=== PATIENT | male | born 1970 | race Caucasian/White ===

== ENCOUNTER → 2016-11-14 | Outpatient (CLI) | payer OTHER ==
--- NOTE | 2016-11-14 15:46 | MR ---
EXAMINATION TYPE: MR lumbar spine wo/w con DATE OF EXAM: 11/14/2016 2:50 PM COMPARISON: NONE HISTORY: CAUDA EQUINA SYNDROME CONTRAST: 15 mL intravenous MultiHance. TECHNIQUE: Multiplanar, multisequence images of the lumbar spine were acquired. FINDINGS: Cord terminates at the L1 level. Tarlov cysts are below the S1 level. L5-S1: Disc bulge is present with anterior thecal sac contact. This may have contact with the exiting nerve roots. Compression or displacement however is not identified. No spinal canal stenosis. No f oraminal stenosis. . L4-L5: No significant disc bulge or disc herniation. No spinal canal stenosis. Ligamentum flavum la xity has lateral canal narrowing. Some facet hypertrophy is present. . L3-L4: No significant disc bulge or disc herniation. No spinal canal stenosis. No foraminal stenosi s. . L2-L3: No significant disc bulge or disc herniation. No spinal canal stenosis. No foraminal stenosi s. . L1-L2: No significant disc bulge or disc herniation. No spinal canal stenosis. No foraminal stenosi s. . T12-L1: No significant disc bulge or disc herniation. No spinal canal stenosis. No foraminal stenos is. . No abnormal enhancement. IMPRESSION: 1. Some lateral canal narrowing L4-5 secondary to facet hypertrophy and ligamentum flavum laxity. 2. Broad-based disc bulge L5-S1 with anterior thecal sac contact may have contact with the exiting ne rve roots. No displacement or compression however is evident.
== END | disposition home or self-care (01) ==
LOC: RADMRIMAIN 14:03
PROVIDERS: ATTEND Physician Assistant Medical
DX: M99.73 Connective tissue and disc stenosis of intervertebral foramina of lumbar region (principal); M51.27 Other intervertebral disc displacement, lumbosacral region
CPT/HCPCS: 72158; A9577

== ENCOUNTER 2016-11-24 07:17 | Day surgery (SDC) | payer OTHER ==
[2016-11-22 09:54] VITALS: BMI 23.1
[~2016-11-24 07:17] MED LIST: LACTATED RINGERS 1,000 ML IV SCH; LIDOCAINE 1% 20 ML VIAL (10MG/ML) FOR IV START INTRADERMA PRN
[2016-11-24 07:29] VITALS: TEMP 97.2
[2016-11-24] MEDS ORDERED: LACTATED RINGERS 1,000 ML IV ONE (07:31)
[2016-11-24] MEDS ORDERED: LIDOCAINE 1% INJ 10MG/ML (20 ML MDV) ONE (07:42)
[2016-11-24] MEDS ORDERED: PROPOFOL 10 MG/ML 20 ML VIAL IV ONE (07:42)
--- NOTE | 2016-11-24 07:48 | P.GSHP ---
History of Present Illness H&P Date: 11/24/16 Chief Complaint: GI bleed This a 46-year-old male who presents today for colonoscopy. He's had issues with rectal bleeding. Patient states she's had a colonoscopy. 4 years ago. - Constitutional Constitutional: Reports as per HPI Past Medical History Past Medical History: Chest Pain / Angina, GERD/Reflux Additional Past Medical History / Comment(s): tachycardia, painful bowel movements, blood in stool, History of Any Multi-Drug Resistant Organisms: None Reported Past Surgical History: Back Surgery, Cardiac Ablation, EPS, Orthopedic Surgery Additional Past Surgical History / Comment(s): Tilt table test, multiple chest tubes for plural effusion. left shoulder surgery, laminectomy/disectomy, Past Anesthesia/Blood Transfusion Reactions: Previous Problems w/ Anesthesia, Family History of Problems w/ Anesthesia Additional Past Anesthesia/Blood Transfusion Reaction / Comment(s): diff intubation(pt and his brother) Past Psychological History: Anxiety, Depression Smoking Status: Former smoker Past Alcohol Use History: Rare Additional Past Alcohol Use History / Comment(s): quit smoking 2014, smoked for 20 yrs- 1 PPD Past Drug Use History: None Reported - Past Family History Father Family Medical History: Cancer Additional Family Medical History / Comment(s): lung cancer Mother Family Medical History: Cancer Additional Family Medical History / Comment(s): esophageal cancer. Brother(s) Additional Family Medical History / Comment(s): Patient had 2 brothers with no major medical problems. Sister(s) Additional Family Medical History / Comment(s): Patient has one sister that from lifestyle issues. Patient has one son and one daughter with no major medical problems. Medications and Allergies Home Medications Medication Instructions Recorded Confirmed Type Cyclobenzaprine [Flexeril] 10 mg PO HS 11/26/14 11/22/16 History Sizdzpu-Gqto-Vjdc [id number] 1 - 2 tab PO DAILY PRN 07/25/16 11/22/16 History [Excedrin] Ibuprofen [Advil] 200 mg PO Q6HR PRN 07/25/16 11/22/16 History DULoxetine HCL [Cymbalta] 60 mg PO BID 11/22/16 11/22/16 History Metoprolol Succinate [Toprol XL] 25 mg PO HS 03/07/17 03/07/17 History Morphine Sulfate [Tessa] 30 mg PO DIRECTED PRN 11/22/16 11/22/16 History Allergies Allergy/AdvReac Type Severity Reaction Status Date / Time No Known Allergies Allergy Verified 11/22/16 09:40 Surgical - Exam Vital Signs Temp Pulse Resp BP Pulse Ox 97.2 F L 67 18 119/75 98 11/24/16 07:28 11/24/16 07:28 11/24/16 07:28 11/24/16 07:28 11/24/16 07:28 - General well developed, no distress - Eyes PERRL - ENT normal pinna - Neck no masses - Respiratory normal expansion - Cardiovascular Rhythm: regular - Abdomen Abdomen: soft, non tender Assessment and Plan Plan: GI bleed. We'll perform colonoscopy.
--- NOTE | 2016-11-24 07:58 | P.OP ---
Date of Procedure: 11/24/16 Preoperative Diagnosis: GI bleed Postoperative Diagnosis: External hemorrhoids Poor colonic prep Procedure(s) Performed: Colonoscopy Anesthesia: MAC Surgeon: Mario Reyes Pathology: none sent Condition: stable Disposition: PACU Description of Procedure: The patient's placed on the endoscopy table in the lateral position. He received IV sedation. Digital rectal exam was performed which revealed external hemorrhoids. There is a large amount liquid stool in the rectal vault. The flexible colonoscope was then placed patient anus and passed throughout the colon. The colonic prep was very poor. There is a large amount liquid stool throughout the colon. Scope was passed into the right colon however there was too much stool and it could not be passed any further. Scope was withdrawn there was a limited view of the right colon, transverse colon descending colon and sigmoid colon. There is no evidence of blood. The mucosa was poorly visualized due to the large amount liquid stool. Scope was then brought back the rectum and this appeared normal. Scope was withdrawn for patient.
[2016-11-24 08:04] VITALS: RESP 16
[2016-11-24 08:27] VITALS: BP 139/91; PULSE 68
== END 2016-11-24 09:00 | disposition home or self-care (01) ==
LOC: ORWHC2ENDO 07:17
PROVIDERS: ATTEND Surgery
DX: K64.4 Residual hemorrhoidal skin tags (principal); Z87.19 Personal history of other diseases of the digestive system; K21.9 Gastro-esophageal reflux disease without esophagitis; F41.9 Anxiety disorder, unspecified; F32.9 Major depressive disorder, single episode, unspecified; I49.9 Cardiac arrhythmia, unspecified; Z79.1 Long term (current) use of non-steroidal anti-inflammatories (NSAID); Z79.82 Long term (current) use of aspirin; Z79.891 Long term (current) use of opiate analgesic; Z79.899 Other long term (current) drug therapy; Z87.891 Personal history of nicotine dependence
CPT/HCPCS: 45378; J2001; J2704

== ENCOUNTER → 2017-03-10 | Outpatient (CLI) | payer OTHER ==
--- NOTE | 2017-03-10 09:48 | CT ---
EXAMINATION TYPE: CT chest w con DATE OF EXAM: 03/10/2017 COMPARISON: September 06, 2013, radiograph. No CT is available. HISTORY: Scar tissue due to TB, shortness of breath. CT DLP: 540 mGycm Automated exposure control for dose reduction was used. CONTRAST: CT scan of the chest is performed with IV Contrast, patient injected with 100 mL of Omnipaque 300. FINDINGS: LUNGS: Diffuse emphysematous changes with apical scarring is noted left greater than right upper lobe . Mild dependent changes are noted at the left lung base. There is no pleural effusion or pneumothora x. A discrete pulmonary nodule is not identified. The central airways are patent. No endobronchial le mac is identified. The mediastinum is unremarkable. There is no mediastinal or hilar lymphadenopathy. The aorta is not d ilated. Visualized upper abdomen reveals no significant findings. Osseous structures are unremarkable. IMPRESSION: Bullous changes and scarring are noted in the left upper lobe. When comparing the front desk auxiliary image to the radiograph from August 2013 this does not appear significantly changed. Correlation with prior outs adriane computed tomography may be of benefit if warranted.
== END | disposition home or self-care (01) ==
LOC: RADCTMAIN 07:21
PROVIDERS: ATTEND Family Medicine
DX: J98.4 Other disorders of lung (principal)
CPT/HCPCS: 71260; Q9967

== ENCOUNTER → 2017-07-06 | Outpatient (CLI) | payer OTHER ==
--- NOTE | 2017-07-06 13:49 | MR ---
EXAMINATION TYPE: MR lumbar spine wo/w con DATE OF EXAM: 07/06/2017 COMPARISON: 11/14/2016 HISTORY: 47-year-old male with lumbago, low back pain Technique: Multiplanar, multisequence images of the lumbar spine were obtained before and after admin istration of 7.5 mL intravenous Gadavist gadolinium contrast. FINDINGS: Vertebral body heights are preserved. Alignment is maintained. Conus medullaris is normal. No suspicious bone marrow replacement. Variable disc desiccation throughout, greatest at L5-S1 where there is also mild disc height loss. Bu lging disks at multiple levels. Small posterior annular fissure at L4-L5. Facet arthropathy mid to lower lumbar spine. At T12-L1, mild disc bulge without significant canal or foraminal stenosis. At L1-L2, mild diffuse disc bulge without significant canal or foraminal stenosis. At L2-L3, mild diffuse disc bulge and mild facet degenerative change. No significant spinal canal or neuroforaminal stenosis. At L3-L4, there is mild facet degenerative change without significant spinal canal or neuroforaminal stenosis. At L4-L5, diffuse disc bulge with posterior annular fissure and facet degenerative change. Changes re sult in mild left greater than right neuroforaminal stenosis. Disc material seems to abut the alyssa ing left L5 nerve root and possibly contact the traversing right L5 nerve root as well, sagittal imag es 4 and 8. No spinal canal stenosis. L5 laminectomy changes present without suspicious epidural or p erineural enhancement. At L5-S1, there is diffuse disc bulging eccentric towards the left with facet degenerative change. No spinal canal stenosis. Changes result in mild bilateral neuroforaminal stenosis. However, there may be prominent abutment of the extraforaminal left L5 nerve root by the bulging disc, axial image 3. Small 8 mm sacral Tarlov cyst towards the left. No prevertebral or paravertebral soft tissue abnormality seen. IMPRESSION: 1. Overall stable appearance to the lumbar spine. Prior L5 laminectomy; no suspicious enhancement see n. 2. Moderate degenerative disc disease lower lumbar spine but with bulging disks throughout and facet arthropathy mid to lower lumbar spine. 3. Variable mild neuroforaminal stenoses as outlined above. 4. At L4-L5, disc material may contact the traversing L5 nerve roots on both sides. A posterior annul ar fissure is present at this level. 5. At L5-S1, eccentric leftward disc bulge may contact the extraforaminal left L5 nerve root.
== END | disposition home or self-care (01) ==
LOC: RADMRIMAIN 12:48
PROVIDERS: ATTEND Psychiatry & Neurology Pain Medicine
DX: M99.73 Connective tissue and disc stenosis of intervertebral foramina of lumbar region (principal); M51.26 Other intervertebral disc displacement, lumbar region; M51.36 Other intervertebral disc degeneration, lumbar region; M46.96 Unspecified inflammatory spondylopathy, lumbar region; Z98.890 Other specified postprocedural states
CPT/HCPCS: 72158; A9581

== ENCOUNTER → 2018-06-13 | Outpatient (CLI) | payer OTHER ==
--- NOTE | 2018-06-13 08:38 | CT ---
EXAMINATION TYPE: CT lumbar spine wo con DATE OF EXAM: 06/13/2018 COMPARISON: MRI 07/06/2017 HISTORY: 48-year-old male back pain TECHNIQUE: Contiguous axial scanning of the lumbar spine without IV contrast. Coronal and sagittal re constructions performed. CT DLP: 461.3 mGycm Automated exposure control for dose reduction was used. FINDINGS: Vertebral body heights are preserved and alignment is maintained. Mild degenerative disc disease throughout characterized by disc space narrowing and bulging discs. Mo re moderate degenerative change at L5-S1 with some vacuum phenomenon noted. Facet arthropathy lower lumbar spine and prior L5 laminectomies. No pars interarticularis defect. No prevertebral or paravertebral soft tissue abnormality. At L4-L5, redemonstrated broad-based posterior disc protrusion as seen on prior MRI. This does not ap pear to compromise the spinal canal. On the right, the changes cause mild spinal canal stenoses at L4-L5 and L5-S1. On the left, more moderate neuroforaminal stenosis at L4-L5 and L5-S1. IMPRESSION: 1. MODERATE DEGENERATIVE DISC DISEASE AT L5-S1 AND FACET ARTHROPATHY IN THE LOWER LUMBAR SPINE BUT WI TH BULGING DISCS AT MULTIPLE LEVELS, LARGEST AT L4-L5, RELATIVELY SIMILAR TO PATIENT'S PRIOR MRI. 2. PRIOR L5 LAMINECTOMY CHANGE. 3. NO VERTEBRAL COMPRESSION COLLAPSE OR MALALIGNMENT. 4. MODERATE LEFT-SIDED NEUROFORAMINAL STENOSIS AT L4-L5 AND L5-S1. MILD ON THE RIGHT AT THESE LEVELS.
== END | disposition home or self-care (01) ==
LOC: RADCTMAIN 07:49
PROVIDERS: ATTEND Specialist
DX: M48.061 Spinal stenosis, lumbar region without neurogenic claudication (principal); M51.36 Other intervertebral disc degeneration, lumbar region; M51.37 Other intervertebral disc degeneration, lumbosacral region; M46.96 Unspecified inflammatory spondylopathy, lumbar region; Z98.890 Other specified postprocedural states
CPT/HCPCS: 72131

== ENCOUNTER → 2018-08-03 | Outpatient (CLI) | payer OTHER ==
--- NOTE | 2018-08-03 08:57 | MR ---
EXAMINATION TYPE: MR lumbar spine wo/w con DATE OF EXAM: 08/03/2018 COMPARISON: MRI lumbar spine June 26, 2017. CT lumbar spine June 13, 2018. HISTORY: Spinal stenosis / Radiculopathy /disc displacement all per order. Pain for 5 years into bila teral lower extremities with history of surgery February 2018 per patient. TECHNIQUE: Multiplanar, multisequence images of the lumbar spine is performed without and with IV contrast, util izing 7.5 mL intravenous Gadavist FINDINGS: Sagittal images of the lumbar spine show vertebral body heights and alignment to remain sat isfactory. Persistent small Schmorl node anterior inferior T12 endplate. There is persistent multilev el disc desiccation. There is persistent mild disc space narrowing T12-L1 and L1-L2 levels. There is persistent mild disc space narrowing L4-L5 level with posterior disc herniation and annular tear on s agittal images. There is persistent mild to moderate disc space narrowing with vacuum disc phenomenon L5-S1 level with posterior disc herniation. No significant change from prior MRI. The conus medullar is remains normal in position and signal ending mid L1 level. There is interval surgery with posterio r laminectomies and spinous process resection L5 level. The bone marrow signal intensity is within n ormal limits. No suspicious enhancement is noted. Stable 8 mm Tarlov cysts inferior S1 level sagittal image 5. Axial images at T12-L1 level redemonstrated mild broad disc bulge without significant spinal canal st enosis or neural foraminal narrowing. Axial images at L1-L2 level show slightly more prominent mild broad disc bulge minimally effacing ant erior thecal sac, bilateral neural foramina are patent. No significant change from prior. Axial images at L2-L3 level shows mild broad disc bulge and mild facet degenerative changes bilateral ly. Spinal canal is minimally effaced anteriorly. Bilateral neural foramina are patent. No significan t change from prior. Axial images at L3-L4 level redemonstrate mild facet degenerative changes and ligamentum flavum hyper trophy bilaterally. Spinal canal is preserved. Bilateral neural foramina are patent. Axial images at L4-L5 level redemonstrate mild to moderate facet degenerative changes bilaterally. Th ere is broad disc bulge with central disc protrusion component annular tear effacing anterior thecal sac. There is persistent left greater than right mild bilateral neural foraminal narrowing. No defini tive nerve effacement identified. No significant change from prior MRI. Axial images at the L5-S1 level show mild/moderate facet degenerative changes bilaterally. There are bilateral laminectomy defects and spinous process resection. There is central disc protrusion seen ax ial image 3. Spinal canal is preserved. There is mild to moderate inferior left-sided neural foramina l narrowing at this level redemonstrated due to foraminal disc protrusion component. Right-sided neur al foramen is patent. No significant change from prior. IMPRESSION: Redemonstration of postsurgical changes L5 level. Stable alignment. Stable multilevel deg enerative changes most prominent at L4-L5 and L5-S1 levels as detailed above. No suspicious or new di sc herniation seen to account for patient's bilateral radiculopathy type symptoms. No significant makayla nge from prior MRI.
== END | disposition home or self-care (01) ==
LOC: RADMRIMAIN 08:03
PROVIDERS: ATTEND Nurse Practitioner
DX: M47.816 Spondylosis without myelopathy or radiculopathy, lumbar region (principal); M47.817 Spondylosis without myelopathy or radiculopathy, lumbosacral region; Z98.890 Other specified postprocedural states
CPT/HCPCS: 72158; A9585

== ENCOUNTER → 2018-09-07 | Outpatient (CLI) | payer OTHER ==
--- NOTE | 2018-09-07 08:24 | CT ---
EXAMINATION TYPE: CT chest w con DATE OF EXAM: 09/07/2018 COMPARISON: 03/10/2017 HISTORY: interstitial lung disease CT DLP: 232.50 mGycm Automated exposure control for dose reduction was used. CONTRAST: CT scan of the chest is performed with IV Contrast, patient injected with 100 mL of Isovue 300. FINDINGS: LUNGS: Severe left greater than right upper lobe emphysematous change. Pleural parenchymal scarring l eft lung apex and to a lesser extent on the right. Linear atelectasis or parenchymal scar left lower lobe. Overall appearance is improved from prior study. No distinct infiltrate or pulmonary mass. Pleu ral-based calcification left lower lobe. MEDIASTINUM: There are no greater than 1 cm hilar or mediastinal lymph nodes. No pericardial effusi on is seen. Thoracic aorta is of normal caliber. The heart is not enlarged. UPPER ABDOMEN: No significant abnormality appreciated. OTHER: No additional significant abnormality is seen. IMPRESSION: 1. Stable emphysematous changes and biapical scarring. No evidence of pulmonary nodule or mass at thi s time.
== END ==
LOC: RADCTMAIN 07:27
PROVIDERS: ATTEND Internal Medicine Critical Care Medicine
DX: J43.9 Emphysema, unspecified (principal); J98.4 Other disorders of lung
CPT/HCPCS: 71260; Q9967

== ENCOUNTER → 2018-09-14 | Day surgery (SDC) | payer OTHER ==
[~2018-09-14] MED LIST changes: +DIAZEPAM 5 MG TAB PO STA; +HYDROcodone/APAP 5-325MG 1 EACH TAB ONE; +HYDROcodone/APAP 5-325MG 1 EACH TAB PO STA; -LACTATED RINGERS 1,000 ML IV SCH; -LIDOCAINE 1% 20 ML VIAL (10MG/ML) FOR IV START INTRADERMA PRN; +PREMYELOGRAM MEDICATION REVIEW 1 EACH MISC PO NR
[2018-09-14 08:27] VITALS: TEMP 98.5
[2018-09-14 10:08] VITALS: RESP 18
--- NOTE | 2018-09-14 12:03 | CT ---
EXAMINATION TYPE: CT lumbar spine w con DATE OF EXAM: 09/14/2018 COMPARISON: CT lumbar spine June 13, 2018. MRI lumbar spine August 03, 2018 HISTORY: Spinal stenosis per order. History of prior back surgeries with most recent surgery earlier this year CT DLP: 927 mGycm Automated exposure control for dose reduction was used. CONTRAST: CT scan of the lumbar is performed without IV contrast but with intrathecal contrast. There are 5 lum bar-type vertebra redemonstrated. There is slight levoconvex scoliotic curvature again seen. There is persistent moderate disc space narrowing L5-S1 level and mild disc space narrowing L1-L2 level. Ther e is successful contrast opacification of spinal canal. There is redemonstration of spinous process r esection L5 level. Conus medullaris ends at upper to mid L1 level. Axial images redemonstrate mild broad disc bulge minimally effacing anterior thecal sac at L3-L4 leve l with mild facet degenerative changes bilaterally. Axial images at the L4-L5 level show bilateral laminectomy defects and spinous process resection with mild facet degenerative changes bilaterally. There is broad disc bulge with central disc protrusion effacing anterior thecal sac which correlates with MRI. There is mild bilateral neural foraminal narr owing seen. Axial images at L5-S1 level show mild facet degenerative changes bilaterally. Bilateral laminectomy d efects and spinous process resection are again seen. Spinal canal is preserved. Central disc protrusi on does effacing the anterior thecal sac. Right-sided neural foramina is patent. Some marginal spurri ng on the left causes moderate inferior left-sided neural foraminal narrowing. No suspicious incidental finding seen in visualized abdomen. IMPRESSION: Correlating with MRI there is postsurgical change L5 level. There is disc herniation L4-L 5 level effacing anterior thecal sac. Disc herniation also noted L5-S1 level without significant spin al canal effacement. No suspicious spinal canal stenosis seen. There is better visualization of moder ate left-sided neural foraminal narrowing L5-S1 level due to marginal spurring on CT versus recent MR I otherwise no significant interval change.
--- NOTE | 2018-09-14 12:06 | FL ---
EXAMINATION TYPE: FL myelogram lumbosacral DATE OF EXAM: 09/14/2018 COMPARISON: CT lumbar spine June 13, 2018. MRI lumbar spine August 03, 2018. HISTORY: Low back pain, spinal stenosis. Informed consent was obtained and all the patient's questions were answered. The L5 level was locali zed under fluoroscopy due to laminectomy defects and spinous process resection. A total of 1 minute 14 seconds of fluoroscopic time was utilized during procedure. 6 spot images are saved to PACS. Standard sterile technique was utilized as well as appropriate local anesthesia 1% Lidocaine . Spina l needle was introduced into the thecal sac under fluoroscopic guidance and 10 mL's of Isovue-300 was injected. The patient tolerated the procedure well and left the department in stable condition. CT myelography is to follow. Vital findings were stable and monitored before during and after procedure. Patient was kept in the h ospital for short stay after procedure and CT and then discharged home in stable condition Images saved after successful contrast opacification show no obvious focal spinal canal stenosis. IMPRESSION: Successful myelography lumbar spine.
[2018-09-14 14:25] VITALS: BP 121/72; PULSE 88
== END ==
LOC: RADPROMAIN 07:59
PROVIDERS: ATTEND Specialist
DX: M51.16 Intervertebral disc disorders with radiculopathy, lumbar region (principal); M48.07 Spinal stenosis, lumbosacral region; M96.1 Postlaminectomy syndrome, not elsewhere classified; Z79.899 Other long term (current) drug therapy; Z87.891 Personal history of nicotine dependence
CPT/HCPCS: 62304; 72132; Q9967

== ENCOUNTER → 2019-07-16 | Outpatient (CLI) | payer OTHER ==
[2019-07-16 11:21] VITALS: BP 137/89; PULSE 110; RESP 18
--- NOTE | 2019-07-16 12:08 | P.PAINCN ---
History of Present Illness - Reason for Consult Consult date: 07/16/19 - History of Present Illness This is an initial consultation visit for this 49 years old male with a chronic history of severe low back pain started in 2012 after he slipped and fell at work, and he had lumbar laminectomy surgery at that time, and last year he had a lumbar laminectomy surgery and he continued to have pain, with radiation to the lower extremity associated with some numbness and tingling sensation, then in December of 2018 he had lumbar laminectomy and fusion surgery at L4 5 and L5-S1, helped his low back pain to some degree, currently is complaining of severe low back pain mostly in the buttock area bilaterally, occasional numbness and tingling sensation in the lower extremity, he denies any motor or sensory deficit, he denies any fever or night sweats, there is no change in bowel movement or urination, intensity of the pain increased with sitting or standing for long periods of time, and with any activity Past Medical History Past Medical History: Chest Pain / Angina, GERD/Reflux Additional Past Medical History / Comment(s): current back pain, tachycardia, 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 left shoulder surgery, laminectomy/disectomy, spinal fusion with rods and screws Past Anesthesia/Blood Transfusion Reactions: Previous Problems w/ Anesthesia, Family History of Problems w/ Anesthesia Additional Past Anesthesia/Blood Transfusion Reaction / Comm: diff intubation(pt and his brother)-no letter Smoking Status: Former smoker - Past Family History Father Family Medical History: Cancer Additional Family Medical History / Comment(s): lung cancer Mother Family Medical History: Cancer Additional Family Medical History / Comment(s): esophageal cancer. Brother(s) Additional Family Medical History / Comment(s): Patient had 2 brothers with no major medical problems. Sister(s) Additional Family Medical History / Comment(s): Patient has one sister that from lifestyle issues. Patient has one son and one daughter with no major medical problems. Medications and Allergies Home Medications Medication Instructions Recorded Confirmed Type Baclofen 10 mg PO BID PRN 07/12/19 07/12/19 History Butalb/APAP/Caff 50-325-40Mg 1 tab PO BID PRN 07/12/19 07/12/19 History [Fioricet 50-325-40] Meloxicam 15 mg PO DAILY 07/12/19 07/12/19 History hydrOXYzine HCL [Atarax] 25 mg PO TID PRN 07/12/19 07/12/19 History Allergies Allergy/AdvReac Type Severity Reaction Status Date / Time No Known Allergies Allergy Verified 07/12/19 11:00 Physical Exam Vitals: Vital Signs Pulse Resp BP Pulse Ox 07/16/19 11:10 110 H 18 137/89 98 REVIEW OF ORGAN SYSTEMS: CONSTITUTIONAL: No fevers or chills. No recent weight loss. EYES: History of troubles with vision. No glasses. HEENT: No difficulties with hearing. No nosebleeds. No difficulty swallowing. RESPIRATORY: Past pneumonia. Denies any troubles with breathing or dyspnea on exertion. CARDIOVASCULAR: Denies any chest pain, palpitations, or recent heart attacks. GASTROINTESTINAL: Denies fatty food intolerance. Has change in bowel habits and gas bloat. GENITOURINARY: Denies any blood in urine. Has increased urinary frequency. NEUROLOGICAL: Occasional numbness , tingling along the lower extremities. No seizure disorders or headaches. MUSCULOSKELETAL: Has back pain, stiffness or joint arthritis. SKIN: no skin rash PSYCHIATRIC: Denies current depression or suicidal thoughts. ENDOCRINE: Denies current thyroid disorders. Denies any blood sugar glucose intolerance. HEME/LYMPHATIC: Denies any lumps and bumps around the neck. History of deep venous thrombosis. ALLERGY/IMMUNOLOGY: No immunoglobulin therapy. No immune deficiencies. BREAST: Denies current breast lumps, pain or nipple discharge. Physical Examinations : Constitutiona : Cooperative , not in acute distress . HEENT : nech : supple , no Lymphadenopathy , normal thyroid size . eyes : no ptosis , no icterus, no photophobia . ENT : normal of hearing , normal oropharynx , no Thrush . Respiratory : Chest clear to auscultations Bilaterally , no wheezing , no Rhonchi . Cardiovascula : regular rate and rhythem , S1 , S2 , no S3 , no S4. Gastrointestina : abdomen soft no tenderness , bowel sounds , no organomegally . Genitourinary : Defferred . neurologic : Cranial nerve II to XII intact , no focal neurological deffecit . psychatric : alert , oriented X 3 , appropriate affect , intact judgment and insight . Lymphatic : no Lymphadenopathy . musculoskeltal : Lumber spine moter stegnth lower extremities ,thigh and legs 5/5 Right side , 5/5 Left side deep tendon reflexes : normal Knee Jerk , normal ankle Jerk positive lumber facet Loading Test Range of motion of the lumbar spine Flexion 30 degrees, extension 10 degrees strait leg raising test , positive at 45 degree Fabere test positive bilaterally tenderness over the Sacroiliac joint on the R and L sides Gaenslen test= positive bilaterally. Seated flexion test= positive bilaterally. Results Comments: MRI of the lumbar spine 2018= L4 5 and L5-S1 lumbar laminectomy and facet degeneration Assessment and Plan Plan: Assessment and plan= failed back surgery syndrome and lumbar area. Sacroiliitis/sacroiliac joint dysfunction. Patient could benefit from caudal epidural steroid injection with lysis of epidural adhesions under fluoroscopy guidance Procedure risk and benefit of the alternatives discussed with the patient she agreed with the preceding. Time with Patient: Greater than 30 PQRS Measure Charge Sheet Measure #130: Documentation of Current Meds in Medical Chart: Patient's medications documented in chart Measure #226: Tobacco Use: Screen & Cessation Intervention: Pt not a tobacco user Measure #111: Pneumonia Vaccination: Pneumococcal vaccine NOT administered or previously given Measure #47: Advance Care Plan: Advance care planning discussed & documented, pt chose/unable to give Measure #412: Opioid Treatment Agreement: No documentation of signed opioid treatment agreement Measure #408: Opioid Therapy Follow-up Evaluation: Patient had NO f/u eval minimum every 3 months during opioid therapy Measure #317: Preventitive Care & Scrn High Bld Press & F/U: Normal blood pressure, f/u not required Measure #128: Body Mass Index (BMI) Screening & Follow-up: BMI documented within normal parameters Measure #131: Pain Assessment & Follow-up: Pain positive & plan documented, Follow-up scheduled Measure #431: Unhealthy Alcohol Use Preventative Care & Scrn: Patient not identified as an unhealthy alcohol user PQRS Narrative: Smoking Status Former smoker Blood Pressure 137/89 Pain Intensity [Lower Back] 6 Scale Used Numeric (1 - 10) Hx Alcohol Use (MH) Yes Home Medications: Ambulatory Orders Baclofen 10 mg PO BID PRN 07/12/19 Butalb/APAP/Caff 50-325-40Mg [Fioricet 50-325-40] 1 tab PO BID PRN 07/12/19 Meloxicam 15 mg PO DAILY 07/12/19 hydrOXYzine HCL [Atarax] 25 mg PO TID PRN 07/12/19
== END | disposition home or self-care (01) ==
LOC: PNWHC3 10:45
PROVIDERS: ATTEND Specialist
DX: G89.29 Other chronic pain (principal); M54.5 Low back pain; M96.1 Postlaminectomy syndrome, not elsewhere classified; M46.1 Sacroiliitis, not elsewhere classified; M53.3 Sacrococcygeal disorders, not elsewhere classified; Z87.891 Personal history of nicotine dependence; R20.2 Paresthesia of skin; R20.0 Anesthesia of skin; Z98.1 Arthrodesis status; Z79.899 Other long term (current) drug therapy
CPT/HCPCS: 99211

== ENCOUNTER 2021-05-27 09:40 | Day surgery (SDC) | payer BC, OTHER ==
[2021-05-25 15:23] VITALS: BMI 25.7
[~2021-05-27 09:40] MED LIST changes: -DIAZEPAM 5 MG TAB PO STA; -HYDROcodone/APAP 5-325MG 1 EACH TAB ONE; -HYDROcodone/APAP 5-325MG 1 EACH TAB PO STA; +LACTATED RINGERS 1,000 ML IV SCH; -PREMYELOGRAM MEDICATION REVIEW 1 EACH MISC PO NR
[2021-05-27 10:19] VITALS: TEMP 98.8
[2021-05-27] MEDS ORDERED: PROPOFOL 10 MG/ML 20 ML VIAL IV ONE (11:06)
--- NOTE | 2021-05-27 11:12 | P.GSHP ---
History of Present Illness H&P Date: 05/27/21 Chief Complaint: GERD The 51-year-old male presents today for EGD. He's had issues with GERD. Past Medical History Past Medical History: Chest Pain / Angina, GERD/Reflux, Musculoskeletal Disorder Additional Past Medical History / Comment(s): back pain, hx. 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 pain, GERD History of Any Multi-Drug Resistant Organisms: None Reported Past Surgical History: Adenoidectomy, Back Surgery, Cardiac Ablation, EPS, Orthopedic Surgery Additional Past Surgical History / Comment(s): Tilt table test, multiple chest tubes for plural effusion. left shoulder surgery, laminectomy/disectomy, spinal fusion with rods and screws Past Anesthesia/Blood Transfusion Reactions: Previous Problems w/ Anesthesia, Family History of Problems w/ Anesthesia Additional Past Anesthesia/Blood Transfusion Reaction / Comment(s): diff intubation(pt and his brother)-no letter Smoking Status: Former smoker - Past Family History Father Family Medical History: Cancer Additional Family Medical History / Comment(s): lung cancer Mother Family Medical History: Cancer Additional Family Medical History / Comment(s): esophageal cancer. Brother(s) Additional Family Medical History / Comment(s): Patient had 2 brothers with no m ajor medical problems. Sister(s) Additional Family Medical History / Comment(s): Patient has one sister that from lifestyle issues. Patient has one son and one daughter with no major medical problems. Medications and Allergies Home Medications Medication Instructions Recorded Confirmed Type hydrOXYzine HCL [Atarax] 25 mg PO TID PRN 07/12/19 05/25/21 History methocarbamoL [Methocarbamol] 500 mg PO Q8H PRN 05/25/21 05/25/21 History Allergies Allergy/AdvReac Type Severity Reaction Status Date / Time No Known Allergies Allergy Verified 05/25/21 15:07 Surgical - Exam Vital Signs Temp Pulse Resp BP Pulse Ox 98.8 F 77 18 116/76 96 05/27/21 10:18 05/27/21 10:18 05/27/21 10:18 05/27/21 10:18 05/27/21 10:18 - General well developed, well nourished, no distress - Eyes PERRL - ENT normal pinna - Neck no masses - Respiratory normal expansion - Cardiovascular Rhythm: regular - Abdomen Abdomen: soft, non tender Assessment and Plan Assessment: GERD. We'll perform EGD.
--- NOTE | 2021-05-27 11:20 | P.OP ---
Date of Procedure: 05/27/21 Preoperative Diagnosis: GERD Postoperative Diagnosis: Antral gastritis Esophagitis Small sliding hiatal hernia Procedure(s) Performed: EGD Anesthesia: MAC Surgeon: Mario Reyes Pathology: other (Antrum, esophagus) Condition: stable Disposition: PACU Description of Procedure: The patient's placed on the endoscopy table in the lateral position. He received IV sedation. The gastroscope placed oropharynx passed in the esophagus and stomach. Scope was then placed through the pylorus. First and second portion of the duodenum appeared normal. Scope was then brought back the antrum this was mildly inflamed. A biopsies performed. Scope was unretroflexed and remainder of the stomach appeared normal. There was a small sliding hiatal hernia. The GE junction was at 47 is. The distal esophagus appeared mildly inflamed a biopsies performed. The proximal esophagus appeared normal. Scope was withdrawn for patient.
[2021-05-27 12:09] VITALS: BP 119/75; PULSE 77; RESP 20
== END 2021-05-27 12:15 | disposition home or self-care (01) ==
LOC: ORWHC2ENDO 09:40
PROVIDERS: ATTEND Surgery
DX: K29.50 Unspecified chronic gastritis without bleeding (principal); K44.9 Diaphragmatic hernia without obstruction or gangrene; K21.00 Gastro-esophageal reflux disease with esophagitis, without bleeding; F41.9 Anxiety disorder, unspecified; G43.909 Migraine, unspecified, not intractable, without status migrainosus; Z80.1 Family history of malignant neoplasm of trachea, bronchus and lung; Z87.891 Personal history of nicotine dependence
CPT/HCPCS: 88305; 43239; J2704

== ENCOUNTER → 2021-06-03 | Outpatient (CLI) | payer BC ==
[2021-06-03 15:59] LABS: Basophils # (A) 0.1 k/uL (0-0.2); Basophils % (A) 1 %; Eosinophils # (A) 0.2 k/uL (0-0.7); Eosinophils % (A) 2 %; HCT 41.3 % (39.0-53.0); HGB 14.2 gm/dL (13.0-17.5); Lymphocytes # (A) 1.7 k/uL (1.0-4.8); Lymphocytes % (A) 27 %; MCH 28.7 pg (25.0-35.0); MCHC 34.5 g/dL (31.0-37.0); MCV 83.4 fL (80.0-100.0); Mean Platelet Volume 6.7; Monocytes # (A) 0.4 k/uL (0-1.0); Monocytes % (A) 6 %; Neutrophils # (A) 3.8 k/uL (1.3-7.7); Neutrophils % (A) 60 %; Platelet Count 316 k/uL (150-450); RBC 4.95 m/uL (4.30-5.90); WBC 6.4 k/uL (3.8-10.6)
== END | disposition home or self-care (01) ==
LOC: LABPAT 15:00
PROVIDERS: ATTEND Surgery
DX: Z01.812 Encounter for preprocedural laboratory examination (principal); K21.9 Gastro-esophageal reflux disease without esophagitis; D64.9 Anemia, unspecified; F17.200 Nicotine dependence, unspecified, uncomplicated
CPT/HCPCS: 36415; 85025; 93005

== ENCOUNTER 2023-10-16 11:18 | Day surgery (SDC) | payer BC ==
[2023-10-12 12:10] VITALS: BMI 23.1
[~2023-10-16 11:18] MED LIST changes: +LIDOCAINE 1% (10MG/ML) FOR IV START INTRADERMA PRN
[2023-10-16 12:00] VITALS: TEMP 98.6
[2023-10-16] MEDS ORDERED: PROPOFOL 10 MG/ML 20 ML VIAL IV ONE (13:03)
[2023-10-16] MEDS ORDERED: LIDOCAINE 2% (PF) 20 MG/ML 5 ML VIAL ONE (13:03)
--- NOTE | 2023-10-16 13:06 | P.GSHP ---
History of Present Illness H&P Date: 10/16/23 Chief Complaint: GERD -year-old male presents today for EGD. He had issues with GERD. Past Medical History Past Medical History: Chest Pain / Angina, GERD/Reflux, Musculoskeletal Disorder Additional Past Medical History / Comment(s): Back pain, hx. 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 pain, GERD. History of Any Multi-Drug Resistant Organisms: None Reported Past Surgical History: Adenoidectomy, Back Surgery, Cardiac Ablation, EPS, Orthopedic Surgery Additional Past Surgical History / Comment(s): Tilt table test, multiple chest tubes for plural effusion, left shoulder surgery, laminectomy/disectomy, spinal fusion with rods and screws, EGD. Past Anesthesia/Blood Transfusion Reactions: Previous Problems w/ Anesthesia, Family History of Problems w/ Anesthesia Additional Past Anesthesia/Blood Transfusion Reaction / Comment(s): Difficult intubation(pt and his brother)-no letter. Smoking Status: Former smoker - Past Family History Father Family Medical History: Cancer Additional Family Medical History / Comment(s): Lung cancer. Mother Family Medical History: Cancer Additional Family Medical History / Comment(s): Esophageal cancer. Brother(s) Additional Family Medical History / Comment(s): Patient had 2 brothers with no major medical problems. Sister(s) Additional Family Medical History / Comment(s): Patient has one sister that from lifestyle issues. Patient has one son and one daughter with no major medical problems. Medications and Allergies Home Medications Medication Instructions Recorded Confirmed Type Amitriptyline HCl [Elavil] 100 mg PO HS 10/12/23 10/16/23 History Allergies Allergy/AdvReac Type Severity Reaction Status Date / Time No Known Allergies Allergy Verified 10/16/23 11:51 Surgical - Exam Vital Signs Temp Pulse Resp BP Pulse Ox 98.6 F 99 18 129/91 99 10/16/23 11:55 10/16/23 11:55 10/16/23 11:55 10/16/23 11:55 10/16/23 11:55 - General well developed, well nourished, no distress - Eyes PERRL - ENT normal pinna - Neck no masses - Respiratory normal expansion - Cardiovascular Rhythm: regular - Abdomen Abdomen: soft, non tender Assessment and Plan Assessment: .. Esophageal reflux disease will perform EGD.
--- NOTE | 2023-10-16 13:15 | P.OP ---
Date of Procedure: 10/16/23 Preoperative Diagnosis: GERD Postoperative Diagnosis: Gastritis Procedure(s) Performed: egd Anesthesia: MAC Surgeon: Mario Reyes Pathology: other (Antrum) Condition: stable Disposition: PACU Description of Procedure: Placed on the endoscopy table in the lateral position. He received IV sedation. The gas was placed oropharynx and then passed into the esophagus into the stomach. Scope was then placed through the pylorus. The first and second portion of the duodenum appeared normal. Scope was upper back in the antrum this was mild inflamed. A biopsy was performed. The scope was then retroflexed the remainder of the stomach appeared normal. There is no evidence of a hiatal hernia. The GE junction was at 40 cm. The distal esophagus appeared normal. The proximal esophagus appeared normal. Scope withdrawn for the patient.
[2023-10-16 13:52] VITALS: BP 136/88; PULSE 81; RESP 20
== END 2023-10-16 14:33 | disposition home or self-care (01) ==
LOC: ORWHC2ENDO 11:18
PROVIDERS: ATTEND Surgery
DX: K29.50 Unspecified chronic gastritis without bleeding (principal); K31.9 Disease of stomach and duodenum, unspecified; K21.9 Gastro-esophageal reflux disease without esophagitis; Z87.891 Personal history of nicotine dependence
CPT/HCPCS: 88305; 43239; J2704; J2001

== ENCOUNTER → 2023-10-18 | Outpatient (CLI) | payer BC ==
--- NOTE | 2023-10-18 12:42 | NM ---
EXAMINATION TYPE: NM hepatobiliary w CCK DATE OF EXAM: 10/18/2023 COMPARISON: NONE CLINICAL INDICATION: Male, 53 years old with history of K21.00 GERD; TECHNIQUE: After the intravenous administration of 5.23 mCi Tc 99m Mebrofenin hepatobiliary scintigra phy is performed. Immediate images post injection. FINDINGS: There is satisfactory initial accumulation of tracer by the liver. The gallbladder is visualized wit hin 18 minutes. The small bowel activity is noted within 8 minutes. At one hour CCK was administere d, patient was injected with 1.6 mcg of Kinevac, and gallbladder ejection fraction is calculated at 6 5 %, in the normal range. Therefore there is no scintigraphic evidence of cystic or common bile duct obstruction to suggest acute cholecystitis or gallbladder dyskinesia. IMPRESSION: No scintigraphic evidence for acute/chronic cholecystitis or biliary dyskinesia.
== END | disposition home or self-care (01) ==
LOC: RADNMMAIN 06:57
PROVIDERS: ATTEND Surgery
DX: K21.9 Gastro-esophageal reflux disease without esophagitis (principal)
CPT/HCPCS: 78227; A9537; J2805

== ENCOUNTER → 2023-10-20 | Outpatient (CLI) | payer BC ==
--- NOTE | 2023-10-20 08:32 | FL ---
ESOPHOGRAM. HISTORY: Dysphagia Esophagram was performed per the air contrast technique. The patient swallowed barium and effervesce nt crystals without difficulty or delay. Esophageal peristalsis and motility appear to be within normal limits. There is no evidence for filling defect, mass or diverticulum. Small reducible sliding type hiatal hernia noted. Subsequently single contrast cervical esophagram was performed which fails demonstrate evidence for a spiration penetration or mass. IMPRESSION: Small reducible sliding type hiatal hernia noted.
== END | disposition home or self-care (01) ==
LOC: RADUSWWP 07:56
PROVIDERS: ATTEND Surgery
DX: K44.9 Diaphragmatic hernia without obstruction or gangrene (principal); R13.10 Dysphagia, unspecified
CPT/HCPCS: 74220

== ENCOUNTER → 2023-10-24 | Outpatient (CLI) | payer BC ==
[2023-10-24 15:30] LABS: HCT 41.1 % (39.6-50.0); MCH 26.6 pg (27.0-32.0); MCHC 31.6 g/dL (32.0-37.0); Mean Platelet Volume 8.6 FL (9.5-12.2); NRBC Per 100 WBC 0 X 10*3/uL (0.00-0.01); Platelet Count 358 X 10*3/uL (140-440); RBC 4.89 X 10*6/uL (4.40-5.60); RDW 13.1 % (11.5-14.5); WBC 6.85 X 10*3/uL (4.50-10.00)
[2023-10-24 15:31] LABS: Basophils # (A) 0.07 X 10*3/uL (0.00-0.10); Eosinophils # (A) 0.17 X 10*3/uL (0.04-0.35); Eosinophils % (A) 2.5 %; Lymphocytes % (A) 27.7 %; Monocytes # (A) 0.47 X 10*3/uL (0.20-1.00); Monocytes % (A) 6.9 %; Neutrophils # (A) 4.22 X 10*3/uL (1.80-7.70); Neutrophils % (A) 61.6 %
== END | disposition home or self-care (01) ==
LOC: LABPAT 12:38
PROVIDERS: ATTEND Surgery
DX: Z01.818 Encounter for other preprocedural examination (principal); K21.00 Gastro-esophageal reflux disease with esophagitis, without bleeding; I45.10 Unspecified right bundle-branch block
CPT/HCPCS: 36415; 85025; 93005

== ENCOUNTER 2023-10-30 06:03 | Day surgery (SDC) | payer BC ==
[~2023-10-30 06:03] MED LIST changes: +HYDROmorphone 0.5 MG/0.5 ML SYRINGE IVP PRN; -LACTATED RINGERS 1,000 ML IV SCH
[2023-10-30] MEDS: LACTATED RINGERS 1,000 ML IV ONE ×2 (07:15→09:48)
[2023-10-30] MEDS: DEXAMETHASONE SOD PHOSPHATE 4 MG/ML 1 ML VIAL IVP ONE (07:18)
[2023-10-30] MEDS: ONDANSETRON 4 MG/2 ML VIAL IVP ONE ×2 (07:19→14:25)
[2023-10-30] MEDS: ACETAMINOPHEN TAB 500 MG TAB PO PRN (07:19)
[2023-10-30] MEDS ORDERED: HYDROmorphone (PF) 1 MG/ML ONE (07:25)
[2023-10-30] MEDS ORDERED: PROPOFOL 10 MG/ML 20 ML VIAL IV ONE (07:25)
[2023-10-30] MEDS ORDERED: KETOROLAC 15 MG/ML 1 ML VIAL ONE (07:25)
[2023-10-30] MEDS ORDERED: LIDOCAINE 1% INJ 10MG/ML (20 ML MDV) ONE (07:25)
[2023-10-30] MEDS ORDERED: NEOSTIGMINE 1 MG/ML 10 ML VIAL ONE (07:25)
[2023-10-30] MEDS ORDERED: MIDAZOLAM 2 MG/2 ML VIAL ONE (07:25)
[2023-10-30] MEDS: HEPARIN SODIUM,PORCINE 5,000 UNIT/ML 1 ML VIAL SQ PRN (07:25)
[2023-10-30] MEDS ORDERED: fentaNYL (PF) 50 MCG/ML 2 ML AMP ONE (07:25)
[2023-10-30] MEDS ORDERED: KETAMINE HCL IN 0.9 % NACL 50 MG/5 ML SYRINGE ONE (07:25)
[2023-10-30] MEDS ORDERED: GLYCOPYRROLATE 0.2 MG/ML 2 ML VIAL ONE (07:25)
[2023-10-30] MEDS ORDERED: SUCCINYLCHOLINE CHLORIDE 200 MG/10 ML VIAL IV ONE (07:25)
[2023-10-30] MEDS ORDERED: ROCURONIUM 10 MG/ML (5 ML VIAL) IV ONE (07:25)
[2023-10-30 07:51] LABS: African American GFR (CKD) >90 (>60 ml/min/1.73 sqM); Anion Gap 8 mmol/L; Blood Urea Nitrogen 15 mg/dL (9-20); Carbon Dioxide 23 mmol/L (22-30); Chloride 106 mmol/L (98-107); Glucose 103 mg/dL (74-99); Non-African American GFR(CKD) >90 (>60 ml/min/1.73 sqM); Potassium 4.2 mmol/L (3.5-5.1); Sodium 137 mmol/L (137-145)
[2023-10-30] MEDS: LIDOCAINE 0.5%-EPI 1:200,000 50 ML VIAL SQ ONE (08:20)
--- NOTE | 2023-10-30 08:39 | P.OP ---
Date of Procedure: 10/30/23 Preoperative Diagnosis: Gerd Postoperative Diagnosis: gerd Procedure(s) Performed: Laparoscopic Izabella fundoplication Anesthesia: URIAH Surgeon: Mario Reyes Estimated Blood Loss (ml): 5 Pathology: none sent Condition: stable Disposition: PACU Description of Procedure: The patient was placed on the operating table in the supine position. The patient received general anesthesia. And was placed in dorsal lithotomy position. The patient was prepped and draped in the usual sterile fashion. The skin incision sites were anesthetized with 1% local Xylocaine. The skin was incised in the left periumbilical area and then using a blade less 5 mm trocar under direct visualization panel cavity was entered. After adequate insufflation the laparoscope was then placed into the peritoneal cavity. Next a 5 mm trochars placed in the right epigastric position. Another 5 millimeter trocar the right lateral position. Another 5 millimeter trocar in the left lateral position a 5 mm trocar is placed in the left epigastric position. And then the initial 5 mm trocar was exchanged for a 10 mm trocar. The left lateral lobe liver was retracted. The hernia was seen. The crural defect was then dissected using the Harmonic scissors device. A 360 crural dissection was performed the esophagus stomach was reduced back into the peritoneal Cavity. The crural defect was then closed using 2-0 Ethibond suture. Next the fundus of the stomach was mobilized using the Waldron scissors device. and then a 58- [place] bougie dilator was placed oropharynx passed into the esophagus and stomach the fundal plication wrap was then performed by grasping the fundus posteriorly and bringing it around the esophagus and stomach fundoplication was then performed using 2-0 Ethibond suture. Care was taken that the fundal location rested over top of the intra-abdominal esophagus. There was no injury seen to the stomach or esophagus. The dilator was then withdrawn. The abdomen was irrigated there is no bleeding seen. The trochars were then withdrawn and then skin incision sites were closed using 3-0 Monocryl suture Steri-Strips are applied. Patient thought procedure well and sent to recovery room in stable condition.
[2023-10-30] MEDS: HYDROmorphone 0.5 MG/0.5 ML SYRINGE IVP ONE ×4 (09:02→10:39)
[2023-10-30] MEDS: FAMOTIDINE 20 MG/2 ML VIAL IVP ONE (11:45)
[2023-10-30] MEDS: HYDROmorphone 1 MG/ML 1 ML SYRINGE IVP ONE (12:04)
[2023-10-30] MEDS: LACTATED RINGERS 1,000 ML IV SCH ×2 (14:25)
[2023-10-30] MEDS: droPERidol 5 MG/2 ML VIAL IVP ONE (14:25)
[2023-10-30] MEDS: METOCLOPRAMIDE 5 MG/ML 2 ML VIAL IVP SCH (14:26)
[2023-10-30] MEDS: HYDROmorphone 1 MG/ML 1 ML SYRINGE IVP PRN (14:45)
[2023-10-30] MEDS: D5-0.45% NACL WITH KCL 20MEQ/L 1,000 ML IV SCH (14:46)
[2023-10-30] MEDS: ACETAMINOPHEN TAB 325 MG TAB PO PRN (14:51)
[2023-10-30 15:05] VITALS: BMI 22.4
[2023-10-30] MEDS: ONDANSETRON 4 MG/2 ML VIAL IVP PRN (16:20)
[2023-10-30] MEDS: AMITRIPTYLINE HCL 50 MG TAB PO SCH (21:46)
--- NOTE | 2023-10-30 22:16 | CONS ---
CONSULTATION REASON FOR CONSULTATION: Advice regarding GERD and other multiple medical issues, requested by surgery. HISTORY OF PRESENT ILLNESS: This is a 53-year-old gentleman with a past medical history of GERD, history of tuberculosis, history of pneumothorax, being followed by Dr. Leger in the outpatient setting, underwent laparoscopic Izabella fundoplication for GERD by Dr. Reyes. The patient is complaining of some bilateral upper chest pains, possibly gas pains. There is no history of any fever, rigors, or chills at this time. PAST MEDICAL HISTORY: Reviewed include GERD, history of back pain, history of tuberculosis, history of pneumothorax, history of back surgery, rest of the history and rest of the chart is also reviewed. HOME MEDICATIONS: Reviewed include, 1. Ibuprofen. 2. Amitriptyline. Dose and rest of medications noted. ALLERGIES: None. FAMILY HISTORY: History of lung cancer in the family. SOCIAL HISTORY: Previous history of smoking. REVIEW OF SYSTEMS: A 14-point review is negative except as mentioned earlier. PHYSICAL EXAMINATION: VITAL SIGNS: Pulse is 98, blood pressure 120/80, respirations 16. CHEST: Clear to auscultation. CARDIOVASCULAR: S1, S2. ABDOMEN: Soft status post surgery. NERVOUS SYSTEM: No focal deficits. SKIN: No ulcer, rash, bleeding. LABS: Reviewed. ASSESSMENT: 1. Status post laparoscopic Izabella fundoplication for GERD. 2. Postoperative gas pains. 3. History of tuberculosis. 4. History of pneumothorax. 5. History of cardiac ablation. 6. History of anxiety. RECOMMENDATIONS AND DISCUSSION: This is a 53-year-old gentleman presented after surgery. At this time, I recommended to continue current medications, continue the home medications. DVT prophylaxis, IV Protonix, otherwise we will follow the patient closely with you. Dr. Leger will follow tomorrow. MMODL / IJN: [id number] / MTDD
[2023-10-31] MEDS: ENOXAPARIN 40 MG/0.4 ML SYRINGE SQ SCH (08:37)
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
[2023-10-31 10:14] LABS: HCT 35.6 % (39.0-53.0); HGB 11.6 gm/dL (13.0-17.5); MCH 27.9 pg (25.0-35.0); MCHC 32.5 g/dL (31.0-37.0); MCV 85.8 fL (80.0-100.0); Mean Platelet Volume 6.7; Platelet Count 254 k/uL (150-450); RBC 4.15 m/uL (4.30-5.90); RDW 13.7 % (11.5-15.5); WBC 7.4 k/uL (3.8-10.6)
--- NOTE | 2023-10-31 12:35 | P.DS ---
Providers Expected date of discharge: 10/31/23 Attending physician: Mario Reyes Consults: 10/30/23 14:26 Consult Physician Routine Consulting Provider: Silvano Leger Consult Reason/Comments: medical managment Do you want consulting provider notified?: Already Contacted Primary care physician: Vikki Cerrato Hospital Course: Discharge diagnosis GERD status post laparoscopic Niesen fundoplication Hospital course This is a 53-year-old male who has a known history of GERD. He is status post laparoscopic Niesen fundoplication. Patient is tolerating diet. His pain is controlled. He is having flatus. He has been up and ambulating. He is afebrile. He is stable for discharge. Please refer to chart for any further details. Physician Delivery Analyst note has been reviewed by physician. Signing provider agrees with the documented findings, assessment, and plan of care. Patient Condition at Discharge: Stable Plan - Discharge Summary Discharge Rx Participant: No New Discharge Prescriptions: New HYDROcodone/APAP 5-325MG [[place] 5-325] 1 tab PO Q6HR PRN 3 Days #12 tab PRN Reason: Pain Continue Ibuprofen/Acetaminophen [Advil Dual Action 125MG(IBU)-250MG(ACET)] 2 each PO HS Amitriptyline HCl [Elavil] 100 mg PO HS Fish Oil Dose Unknown 2 dose PO QAM Discharge Medication List Amitriptyline HCl [Elavil] 100 mg PO HS 10/12/23 [History] Fish Oil Dose Unknown 2 dose PO QAM 10/24/23 [History] Ibuprofen/Acetaminophen [Advil Dual Action 125MG(IBU)-250MG(ACET)] 2 each PO HS 10/24/23 [History] HYDROcodone/APAP 5-325MG [[place] 5-325] 1 tab PO Q6HR PRN 3 Days #12 tab 10/31/23 [Rx] Follow up Appointment(s)/Referral(s): Silvano Leger MD [STAFF PHYSICIAN] - 1 Week Mario Reyes MD [STAFF PHYSICIAN] - 1 Week Activity/Diet/Wound Care/Special Instructions: No driving while taking [place] No lifting over 10 pounds Shower daily. No soaking or tub baths for 2 weeks Very light activity until you are reevaluated at your follow up appointment with your surgeon Discharge Disposition: HOME SELF-CARE
[2023-10-31 14:04] VITALS: BP 144/74; PULSE 88; RESP 20; TEMP 97.7
== END 2023-10-31 16:21 | disposition home or self-care (01) ==
LOC: OR 06:03 → EDSTATUS 07:30 → 4SSUR 08:35 → OR 10-31 16:21
PROVIDERS: ATTEND Surgery
DX: K21.9 Gastro-esophageal reflux disease without esophagitis (principal); K44.9 Diaphragmatic hernia without obstruction or gangrene; F41.9 Anxiety disorder, unspecified; F10.90 Alcohol use, unspecified, uncomplicated; Z87.891 Personal history of nicotine dependence; Z79.1 Long term (current) use of non-steroidal anti-inflammatories (NSAID); Z79.899 Other long term (current) drug therapy; Z86.11 Personal history of tuberculosis
CPT/HCPCS: 80048; 85027; 43280; J1644; J1100; J2765 ×2; J0690; J2405; J1650; J3490; J1170 ×3

== ENCOUNTER → 2025-01-28 | Outpatient (CLI) | payer BC, OTHER ==
[2025-01-28 09:24] VITALS: BP 136/89; PULSE 113; RESP 16; TEMP 98
--- NOTE | 2025-01-28 15:09 | P.PAINPG ---
PQRS Measure Charge Sheet Comment: HISTORY OF PRESENT ILLNESS: A 55 yr old male as a referral from the presents today w severe and chronic LBP > 5 yrs secondary to L4-S1 Decompression/ Fusion/ Discectomy/ Laminectomy w Hardware for evaluation. Pt states pain level is provoked at 7 /10 in intensity, constant, localized in the lumbar spine, predominantly axial, throbbing in character w occasional shooting pain towards the LEs. Pain is provoked by bending, lifting. Pain is alleviated by physician guided home exercises every other day since 2019, medications, repositioning and rest . Oswestry axial pain score at 30. PMH: OA, HTN, Angina, Hyperlipidemia, GERD, HH, Anxiety PSH: Izabella Fundoplication (2023), Colonoscopy/ EGD (2023), Adenoidectomy, L4-S1 Decompression/ Fusion/ Discectomy/ Laminectomy w Hardware (2019), Cardiac Ablation, EPS, Orthopedic Surgery SH: Former tobacco user, Occ ETOH use, No illicit drug use FH: Fa- Lung CA. Mo- Esophageal CA. Bro- No Reported History. Sis- from lifestyle issues. All: See list Medications include Robaxin, Mobic REVIEW OF ORGAN SYSTEMS: CONSTITUTIONAL: No fevers or chills. No recent weight loss. NEUROLOGICAL: + numbness and tingling along the distal extremities. No seizure disorders or headaches. MUSCULOSKELETAL: + pain PSYCHIATRIC: Denies current depression or suicidal thoughts. Physical Examinations : Constitutional : Cooperative , not in acute distress . Neurologic : Cranial nerve II to XII intact. No focal neurological deficits. Psychiatric : alert & oriented x 3. Matching mood & appropriate affect. Judgment & insight intact. Musculoskeletal : Cervical Spine Motor strength in the deltoid and biceps: Normal right side. Normal Left side Motor strength biceps and the wrist extensors: Normal right side . Normal left side Motor strength in the triceps muscle: Normal right side. Normal left side Deep tendon reflexes: Normal at the biceps. Normal at Brachioradialis. Normal at triceps Vertebral body tenderness to deep palpation over Cervical facet loading test: positive bilaterally Spurling test: positive bilaterally Neck distraction test: positive bilaterally Carlos sign: positive bilaterally Lumbar spine +Incisonal scar Motor strength lower extremities ,thigh and legs 5/5 Right side , 5/5 Left side Deep tendon reflexes : Normal Knee Jerk. Normal Ankle Jerk Vertebral body tenderness over L5 Florentino Test positive BL L5-S1 Lumbar facet Loading Test: positive Right / positive Left Range of motion of the lumbar spine Flexion 30 degrees, extension 10 degrees Straight Leg Raise test: Left/ Right positive at degrees Nela test: positive right / positive left. Severe tenderness over the Sacroiliac joint on the Right / Left sides Gaenslen test: positive bilaterally Seated flexion test: positive bilaterally. Sacral spine : Severe tenderness over the Sacroiliac joint: right side / left side Range of motion: Flexion of the lumbar spine <60 degrees Range of motion: Extension of the lumbar spine <20 degrees Gaenslen's Test positive Nela test: positive right side / left side Thigh Thrust Test Sacral Thrust Test Imaging: MRI non contrast lumbar spine from 11/20/24 reviewed Assessment/ Plan : L4-S1 Decompression/ Fusion/ Discectomy/ Laminectomy w Hardware Recommendation of Caudal YOVANY w Lysis. Risks, benefits of procedure discussed and patient verbalized understanding. Admits to anti- coagulant use or medical history of diabetes. Protocol for discontinuation/ continuation of medications jozef procedure discussed. Minimal anesthesia provided, if clinically indicated, consisting of Versed and Fentanyl. All questions answered. I have spent greater than 30 minutes on patient care today. Dr Green was available by phone for the evaluation of this patient. The time was used to review the medical records including relevant urine studies and Prescription history (MAPs), review of the available imaging, evaluation and examination of the patient, coordination of care with the medical staff and if applicable referring physicians, as well as creation of the medical record PQRS Narrative: Smoking Status Former smoker Hx Alcohol Use (MH) Yes Home Medications: Ambulatory Orders Amitriptyline HCl [Elavil] 100 mg PO HS 10/12/23 Meloxicam [Mobic] 7.5 mg PO DAILY 01/28/25 Controlled Substance Measures - Controlled Substance Measures Is patient prescribed a controlled substance at discharge?: No
== END ==
LOC: PNWHC3 09:03
PROVIDERS: ATTEND Specialist
DX: M43.27 Fusion of spine, lumbosacral region (principal); M96.1 Postlaminectomy syndrome, not elsewhere classified; M51.27 Other intervertebral disc displacement, lumbosacral region; Z87.891 Personal history of nicotine dependence; Z98.890 Other specified postprocedural states
CPT/HCPCS: 99211

== ENCOUNTER → 2025-03-06 | Outpatient (CLI) | payer OTHER ==
[2025-03-06 08:33] VITALS: BP 119/84; PULSE 107; RESP 16; TEMP 97.2
--- NOTE | 2025-03-06 14:38 | P.PAINPG ---
Objective - Vital Signs Vital signs: Vital Signs Temp 97.2 F L 03/06/25 08:27 Pulse 107 H 03/06/25 08:27 Resp 16 03/06/25 08:27 BP 119/84 03/06/25 08:27 Pulse Ox 96 03/06/25 08:27 FiO2 Intake & Output 03/05/25 03/06/25 03/06/25 18:59 06:59 18:59 Weight 77.111 kg PQRS Measure Charge Sheet Mode of Arrival: Ambulatory Comment: HISTORY OF PRESENT ILLNESS: A 55 yr old male as a referral from the [facility] presents today w severe and chronic LBP > 5 yrs secondary to L4-S1 Decompression/ Fusion/ Discectomy/ Laminectomy w Hardware for evaluation s/p Caudal YOVANY #1. Pt states he experienced 50% pain relief x 2 wks s/p procedure. Pt states pain level is provoked at 7-8 /10 in intensity, constant, localized in the lumbar spine, predominantly axial, throbbing in character w occasional shooting pain towards the LEs. Pain is provoked by bending, lifting. Pain is alleviated by physician guided home exercises every other day since 2019, medications, repositioning and rest . Oswestry axial pain score at 30. Interventional procedures include L4-S1 Decompression/ Fusion/ Discectomy/ Laminectomy w Hardware (2019), Caudal YOVANY x1 (02/09) Medications include Robaxin, Mobic REVIEW OF ORGAN SYSTEMS: CONSTITUTIONAL: No fevers or chills. No recent weight loss. NEUROLOGICAL: + numbness and tingling along the distal extremities. No seizure disorders or headaches. MUSCULOSKELETAL: + pain PSYCHIATRIC: Denies current depression or suicidal thoughts. Physical Examinations : Constitutional : Cooperative , not in acute distress . Neurologic : Cranial nerve II to XII intact. No focal neurological deficits. Psychiatric : alert & oriented x 3. Matching mood & appropriate affect. Judgment & insight intact. Musculoskeletal : Cervical Spine Motor strength in the deltoid and biceps: Normal right side. Normal Left side Motor strength biceps and the wrist extensors: Normal right side . Normal left side Motor strength in the triceps muscle: Normal right side. Normal left side Deep tendon reflexes: Normal at the biceps. Normal at Brachioradialis. Normal at triceps Vertebral body tenderness to deep palpation over Cervical facet loading test: positive bilaterally Spurling test: positive bilaterally Neck distraction test: positive bilaterally Carlos sign: positive bilaterally Lumbar spine +Incisonal scar Motor strength lower extremities ,thigh and legs 5/5 Right side , 5/5 Left side Deep tendon reflexes : Normal Knee Jerk. Normal Ankle Jerk Vertebral body tenderness over L5 Florentino Test positive BL L5-S1 Lumbar facet Loading Test: positive Right / positive Left Range of motion of the lumbar spine Flexion 30 degrees, extension 10 degrees Straight Leg Raise test: Left/ Right positive at degrees Nela test: positive right / positive left. Severe tenderness over the Sacroiliac joint on the Right / Left sides Gaenslen test: positive bilaterally Seated flexion test: positive bilateral ly. Sacral spine : Severe tenderness over the Sacroiliac joint: right side / left side Range of motion: Flexion of the lumbar spine <60 degrees Range of motion: Extension of the lumbar spine <20 degrees Gaenslen's Test positive Nela test: positive right side / left side Thigh Thrust Test Sacral Thrust Test Imaging: MRI non contrast lumbar spine from 11/20/24 reviewed Assessment/ Plan : L4-S1 Decompression/ Fusion/ Discectomy/ Laminectomy w Hardware Recommendation of BL TFESI L5-S1 #1 and medication management. [place] 7.5/325mg #90 w RF. Opiate/ narcotic agreement signed 03/06/25. Risks, benefits of procedure discussed and patient verbalized understanding. Admits to anti- coagulant use or medical history of diabetes. Protocol for discontinuation/ continuation of medications jozef procedure discussed. Minimal anesthesia provided, if clinically indicated, consisting of Versed and Fentanyl. All questions answered. I have spent greater than 30 minutes on patient care today. Dr Green was available by phone for the evaluation of this patient. The time was used to r eview the medical records including relevant urine studies and Prescription history (MAPs), review of the available imaging, evaluation and examination of the patient, coordination of care with the medical staff and if applicable referring physicians, as well as creation of the medical record - Pain Location Bilateral Lower Back Non-Pharmacological Interventions: Home Exercise, Ice, Inactivity, Physical Therapy, Position/Reposition, Relaxation Technique, Stretching Pharmacological Interventions: Epidural, PRN Medication, Topical Medication PQRS Narrative: Smoking Status Former smoker Blood Pressure 119/84 Pain Intensity [Bilateral 8 Lower Back] Scale Used Numeric (1 - 10) Hx Alcohol Use (MH) Yes Home Medications: Ambulatory Orders Amitriptyline HCl [Elavil] 100 mg PO HS 10/12/23 Meloxicam [Mobic] 7.5 mg PO DAILY 01/28/25 HYDROcodone/APAP 7.5-325MG [[place] 7.5-325] 1 tab PO TID PRN 30 Days #90 tab 03/06/25 HYDROcodone/APAP 7.5-325MG [[place] 7.5-325] 1 tab PO TID PRN 30 Days #90 tab 03/06/25 Controlled Substance Measures - Controlled Substance Measures Is patient prescribed a controlled substance at discharge?: Yes When asked, does pt state using other controlled substances?: No If prescribed controlled substance>3 days was MAPS reviewed?: Yes If Rx opioid, was Start Talking consent form obtained?: Yes Was information provided regarding opioid addiction?: Yes
== END ==
LOC: PNWHC3 08:19
PROVIDERS: ATTEND Specialist
DX: M43.27 Fusion of spine, lumbosacral region (principal); Z98.890 Other specified postprocedural states; Z87.891 Personal history of nicotine dependence
CPT/HCPCS: 99211

== ENCOUNTER 2025-03-27 07:58 | Day surgery (SDC) | payer OTHER ==
[2025-03-25 13:23] VITALS: BMI 22.4
[2025-03-27 08:21] VITALS: RESP 16; TEMP 97.8
[2025-03-27] MEDS: LACTATED RINGERS 1,000 ML IV SCH (09:01)
[2025-03-27] MEDS: IV FLUID CONTINUATION 1,000 ML IV ONE ×2 (09:02→09:32)
[2025-03-27] MEDS ORDERED: methylPREDNISolone ACETATE 80 MG/ML 1 ML VIAL ONE (09:11)
[2025-03-27] MEDS ORDERED: MIDAZOLAM 2 MG/2 ML VIAL ONE (09:11)
[2025-03-27] MEDS ORDERED: IOPAMIDOL M200 10 ML VIAL ONE (09:11)
[2025-03-27] MEDS ORDERED: fentaNYL (PF) 50 MCG/ML 2 ML AMP ONE (09:11)
--- NOTE | 2025-03-27 09:30 | P.PCN ---
Date of Procedure: 03/27/25 Procedure(s) Performed: PREOPERATIVE DIAGNOSIS: 1-Lumbar radiculopathy . 2-lumbar postlaminectomy pain syndrome POSTOPERATIVE DIAGNOSIS: 1-lumbar radiculopathy. 2-lumbar postlaminectomy pain syndrome PROCEDURE 1. Transforaminal epidural steroid injection under fluoroscopic guidance at Bilateral L5-S1 level. (Fluoroscopy images stored on file in the radiology Department ) 2. Lumbar epidurogram . ANESTHESIA: Sedation with Versed 4 mg and fentanyl 100 mcg (sedation start 09:11,end 09:24 ) and local with 1% lidocaine 3 ml. EBL: Minimal PROCEDURE INDICATION: The patient with low back pain and radiculopathy symptoms unresponsive to conservative treatment. PROCEDURE DESCRIPTION / TECHNIQUE: The patient was seen and identified in the preoperative area. Risks, benefits, complications, and alternatives were discussed with the patient. The patient agreed to proceed with the procedure and signed the consent. IV was started, and vital signs were stable. Sedation was used to decrease patient's anxiety Patient was taken to the OR and time out was completed. The patient was placed in the prone position on procedure table and a pillow was placed under the abdomen to reduce lumbar lordosis. The lumbosacral area was prepped and draped in the usual sterile fashion. Critical pause was taken. Vital signs were closely monitored during the procedure. Using oblique fluoroscopy, the chin of the `Cheny dog at Right L5-S1 level was identified, and the skin and deeper tissues just below was localized with 1% lidocaine. Subsequently, a 23-gauge 3.5-inch spinal needle was advanced under a tunneled view fluoroscopic guidance just underneath the chin of the `Cheny dog at the right L5-S1 Under lateral fluoroscopy, the needle was then advanced to the posterior border of the interforaminal space. After negative aspiration of CSF and blood and with no paresthesias, 1 mL Isovue 200 contrast dye was injected excellent epidurogram and outlining of the nerve root Subsequently, 3 mL of block solution containing 40 mg Depo-Medrol and 2 mL of 0.9% normal saline PF was injected. Needle was removed and the same procedure was repeated at the left L5-S1 level . At the end of the procedure, skin was cleansed, and bandages were applied. COMPLICATIONS:none DISPOSITION / PLANS: The patient was placed in a supine position and transferred to the recovery area in a stable condition for observation. There was no evidence of lower extremity motor or sensory deficit after the procedure. Patient was discharged from the recovery room after meeting discharge criteria. Home discharge instructions were given to the patient by the staff. The patient was reexamined prior to discharge.
--- NOTE | 2025-03-27 09:37 | FL ---
EXAMINATION TYPE: FL guided pain mgmt statistic Intraoperative/procedural fluoroscopic services were provided. CLINICAL INDICATION:Male, 55 years old with history of PAIN; , [facility] FINDINGS: Fluoroscopic images demonstrating bilateral lumbar facet injections. No radiographic evidence for com plication. Total fluoroscopy time is 19.8 seconds. DAP: [id number] [id number] Please see the operative/procedural note for further details. [facility], , 03/27/2025 9:35 AM
[2025-03-27 09:49] VITALS: BP 130/99; PULSE 89
== END 2025-03-27 10:07 | disposition home or self-care (01) ==
LOC: ORPAIN 07:58
PROVIDERS: ATTEND Specialist
DX: M54.16 Radiculopathy, lumbar region (principal); M96.1 Postlaminectomy syndrome, not elsewhere classified
CPT/HCPCS: 64483; J2250; J3010; Q9966; J1010

== ENCOUNTER → 2025-04-17 | Outpatient (CLI) | payer OTHER ==
[2025-04-17 08:11] VITALS: BP 131/87; PULSE 88; RESP 18
--- NOTE | 2025-04-17 14:28 | P.PAINPG ---
PQRS Measure Charge Sheet Comment: HISTORY OF PRESENT ILLNESS: A 55 yr old male as a referral from the [facility] presents today w severe and chronic LBP > 5 yrs secondary to L4-S1 Decompression/ Fusion/ Discectomy/ Laminectomy w Hardware for evaluation s/p BL TFESI L5-S1 #1. Pt states he experienced 50% pain relief x 2 wks s/p procedure. Pt states pain level is provoked at 7 /10 in intensity, constant, localized in the lumbar spine, predominantly axial, throbbing in character w occasional shooting pain towards the LEs. Pain is provoked by bending, lifting. Pain is alleviated by physician guided home exercises every other day since 2019, medications, repositioning and rest . Oswestry axial pain score at 30. Interventional procedures include L4-S1 Decompression/ Fusion/ Discectomy/ Laminectomy w Hardware (2019), Caudal YOVANY x1 (02/09), BL TFESI L5-S1 x1 (04/11) Medications include Robaxin, Mobic REVIEW OF ORGAN SYSTEMS: CONSTITUTIONAL: No fevers or chills. No recent weight loss. NEUROLOGICAL: + numbness and tingling along the distal extremities. No seizure disorders or headaches. MUSCULOSKELETAL: + pain PSYCHIATRIC: Denies current depression or suicidal thoughts. Physical Examinations : Constitutional : Cooperative , not in acute distress . Neurologic : Cranial nerve II to XII intact. No focal neurological deficits. Psychiatric : alert & oriented x 3. Matching mood & appropriate affect. Judgment & insight intact. Musculoskeletal : Cervical Spine Motor strength in the deltoid and biceps: Normal right side. Normal Left side Motor strength biceps and the wrist extensors: Normal right side . Normal left side Motor strength in the triceps muscle: Normal right side. Normal left side Deep tendon reflexes: Normal at the biceps. Normal at Brachioradialis. Normal at triceps Vertebral body tenderness to deep palpation over Cervical facet loading test: positive bilaterally Spurling test: positive bilaterally Neck distraction test: positive bilaterally Carlos sign: positive bilaterally Lumbar spine +Incisonal scar Motor strength lower extremities ,thigh and legs 5/5 Right side , 5/5 Left side Deep tendon reflexes : Normal Knee Jerk. Normal Ankle Jerk Vertebral body tenderness over L5 Florentino Test positive BL L5-S1 Lumbar facet Loading Test: positive Right / positive Left Range of motion of the lumbar spine Flexion 30 degrees, extension 10 degrees Straight Leg Raise test: Left/ Right positive at degrees Nela test: positive right / positive left. Severe tenderness over the Sacroiliac joint on the Right / Left sides Gaenslen test: positive bilaterally Seated flexion test: positive bilaterally. Sacral spine : Severe tenderness over the Sacroiliac joint: right side / left side Range of motion: Flexion of the lumbar spine <60 degrees Range of motion: Extension of the lumbar spine <20 degrees Gaenslen's Test positive Nela test: positive right side / left side Thigh Thrust Test Sacral Thrust Test Imaging: MRI non contrast lumbar spine from 11/20/24 reviewed Assessment/ Plan : L4-S1 Decompression/ Fusion/ Discectomy/ Laminectomy w Hardware Recommendation of BL TFESI L5-S1 #2 and medication management. Risks, benefits of procedure discussed and patient verbalized understanding. Protocol for discontinuation/continuation of medications surrounding procedure discussed. Minimal anesthesia including fentanyl and Versed if clinically indicated. Use,side effects, adverse reactions, safe storage discussed. [place] 7.5/325mg #90 w RF. Opiate/ narcotic agreement signed 03/06/25. UDS 04/17/25. All questions answered. I have spent greater than 30 minutes on patient care today. Dr Green was available by phone for the evaluation of this patient. The time was used to review the medical records including relevant urine studies and Prescription history (MAPs), review of the available imaging, evaluation and examination of the patient, coordination of care with the medical staff and if applicable referring physicians, as well as creation of the medical record - Pain Location Bilateral Lower Back Non-Pharmacological Interventions: Home Exercise, Physical Therapy, TENS Unit Pharmacological Interventions: Epidural, Topical Medication PQRS Narrative: Smoking Status Former smoker Hx Alcohol Use (MH) Yes Home Medications: Ambulatory Orders Amitriptyline HCl [Elavil] 100 mg PO HS 10/12/23 Meloxicam [Mobic] 7.5 mg PO DAILY 01/28/25 Ergocalciferol [Vitamin D2 (1250 Mcg = 95342 Iu)] 1,250 mcg PO WEEKLY 03/25/25 HYDROcodone/APAP 7.5-325MG [Cor[place] 7.5-325] 1 tab PO TID PRN 30 Days #90 tab 04/17/25 HYDROcodone/APAP 7.5-325MG [[place] 7.5-325] 1 tab PO TID PRN 30 Days #90 tab 04/17/25 Controlled Substance Measures - Controlled Substance Measures Is patient prescribed a controlled substance at discharge?: Yes When asked, does pt state using other controlled substances?: Yes If prescribed controlled substance>3 days was MAPS reviewed?: Yes
== END ==
LOC: PNWHC3 07:43
PROVIDERS: ATTEND Specialist
DX: M43.27 Fusion of spine, lumbosacral region (principal); Z98.890 Other specified postprocedural states; Z87.891 Personal history of nicotine dependence
CPT/HCPCS: 80307; 99212